=== PATIENT | male | born 1955 | race Caucasian/White ===

== ENCOUNTER 2018-07-09 02:16 | Outpatient (CLI) | payer BC, SELFPAY ==
[2018-07-09 10:33] LABS: Anion Gap 8.9 mmol/L (3-11); BUN 18 mg/dL (7-18); CO2 28.1 mmol/L (21.0-32.0); CREATININE 0.96 mg/dL (0.70-1.30); Calcium 8.9 mg/dL (8.5-10.1); Chloride 105 mmol/L (98-107); Cholesterol 264 mg/dL (50-200); Glucose 89 mg/dL (70-100); HDL Cholesterol 73 mg/dL (40-60); LDL CHOLESTEROL 179 mg/dL (<100); Potassium 4.2 mmol/L (3.5-5.1); Sodium 142 mmol/L (136-145); Triglyceride 60 mg/dL (30-150)
[2018-07-09 21:16] LABS: CRP, High Sensitivity <0.10 mg/L
[2018-07-12 10:01] LABS: PSA, Screening 6.8 ng/ml (0-4.5)
[2018-07-12 10:30] LABS: Vitamin D 25 Total 73.7 ng/ml (30-100)
== END 2018-07-09 02:36 ==
PROVIDERS: PCP Family Medicine; Visit Provider Family Medicine
DX: Z00.00 Encounter for general adult medical examination without abnormal findings (principal); Z13.220 Encounter for screening for lipoid disorders; Z13.228 Encounter for screening for other metabolic disorders; Z13.21 Encounter for screening for nutritional disorder; Z12.5 Encounter for screening for malignant neoplasm of prostate
CPT/HCPCS: 36415; 80048; 80061; 82306; 83721; 84153; 86141

== ENCOUNTER 2021-07-12 03:44 | Outpatient (CLI) | payer OTHER, SELFPAY ==
[2021-07-12 09:25] LABS: ALT 22 U/L (16-63); AST 14 U/L (15-37); Alkaline Phosphatase 93 U/L (46-116); Anion Gap 8.4 mmol/L (3-11); BUN 18 mg/dL (7-18); Bilirubin, Total 0.4 mg/dL (0.2-1.0); CO2 30.6 mmol/L (21.0-32.0); CREATININE 0.9 mg/dL (0.70-1.30); Calcium 8.7 mg/dL (8.5-10.1); Calculated LDL 194 mg/dL (<100); Chloride 104 mmol/L (98-107); Cholesterol 281 mg/dL (<200); Glucose 88 mg/dL (74-106); HDL Cholesterol 76 mg/dL (40-60); Potassium 3.9 mmol/L (3.5-5.1); Sodium 143 mmol/L (136-145); Triglyceride 57 mg/dL (<150)
[2021-07-12 18:26] LABS: PSA, Screening 8.2 ng/mL (0.0-4.5)
== END 2021-07-12 03:45 | disposition home or self-care (01) ==
LOC: LBO 03:44
PROVIDERS: PCP Family Medicine; Visit Provider Family Medicine
DX: Z13.220 Encounter for screening for lipoid disorders (principal); Z00.00 Encounter for general adult medical examination without abnormal findings; Z12.5 Encounter for screening for malignant neoplasm of prostate
CPT/HCPCS: 36415; 80053; 80061; 84153

== ENCOUNTER 2021-10-24 16:52 | Outpatient (REF) | payer OTHER, SELFPAY ==
[2021-10-24 18:49] LABS: Bilirubin Negative (Negative); Blood Negative (Negative); Clarity Clear (Clear); Glucose Negative (Negative); Ketones Negative (Negative); Leukocyte Esterase Negative (Negative); Nitrite Negative (Negative); Urobilinogen 0.2 EU/dL (Up TO 0.2)
== END 2021-10-24 16:53 | disposition home or self-care (01) ==
LOC: LBN 16:52
PROVIDERS: PCP Family Medicine; Visit Provider Family Medicine
DX: R31.9 Hematuria, unspecified (principal)
CPT/HCPCS: 81003

== ENCOUNTER 2022-07-16 03:22 | Outpatient (CLI) | payer OTHER, SELFPAY ==
[2022-07-16 12:33] LABS: Calculated LDL 184 mg/dL (<100); Cholesterol 265 mg/dL (<200); HDL Cholesterol 72 mg/dL (40-60); Triglyceride 46 mg/dL (<150)
[2022-07-29 11:12] LABS: CRP, High Sensitivity <0.34 mg/L
[2022-07-29 11:18] LABS: PSA, Screening 9.6 ng/mL (<or=4.5)
== END 2022-07-16 03:23 | disposition home or self-care (01) ==
LOC: LOS 03:22
PROVIDERS: PCP Family Medicine; Visit Provider Family Medicine
DX: Z00.00 Encounter for general adult medical examination without abnormal findings (principal); E78.2 Mixed hyperlipidemia; R97.20 Elevated prostate specific antigen [PSA]; Z12.5 Encounter for screening for malignant neoplasm of prostate
CPT/HCPCS: 36415; 80061; 84153; 86141

== ENCOUNTER 2022-11-11 14:12 | Outpatient (REF) | payer OTHER, SELFPAY ==
[2022-11-12 19:39] LABS: PSA, Screening 7.6 ng/mL (<=4.5)
== END 2022-11-11 14:13 | disposition home or self-care (01) ==
LOC: LBN 14:12
PROVIDERS: PCP Family Medicine; Visit Provider Nurse Practitioner Gerontology
DX: R97.20 Elevated prostate specific antigen [PSA] (principal); Z12.5 Encounter for screening for malignant neoplasm of prostate
CPT/HCPCS: 84153

== ENCOUNTER 2023-05-04 01:48 | Outpatient (CLI) | payer OTHER, SELFPAY ==
[2023-05-04 10:10] LABS: Anion Gap 6.1 mmol/L (3-11); BUN 19 mg/dL (7-18); CO2 28.9 mmol/L (21.0-32.0); CREATININE 0.9 mg/dL (0.70-1.30); Calcium 8.6 mg/dL (8.5-10.1); Calculated LDL 166 mg/dL (<100); Chloride 106 mmol/L (98-107); Cholesterol 259 mg/dL (<200); Estimated GFR 93.61 (mL/min/1.73m2); Glucose 103 mg/dL (74-106); HDL Cholesterol 75 mg/dL (40-60); Potassium 3.8 mmol/L (3.5-5.1); Sodium 141 mmol/L (136-145); Triglyceride 91 mg/dL (<150)
[2023-05-04 18:12] LABS: PSA, Screening 6.8 ng/mL (<=4.5)
== END 2023-05-04 01:49 | disposition home or self-care (01) ==
LOC: LBO 01:48
PROVIDERS: PCP Family Medicine; Visit Provider Nurse Practitioner Gerontology
DX: R97.20 Elevated prostate specific antigen [PSA]; Z00.00 Encounter for general adult medical examination without abnormal findings
CPT/HCPCS: 36415; 80048; 80061; 84153

== ENCOUNTER 2025-01-10 07:19 | Outpatient (CLI) | payer OTHER, SELFPAY ==
[2025-01-10 08:30] LABS: Anion Gap 6.3 mmol/L (3-11); BUN 19 mg/dL (7-18); CO2 29.7 mmol/L (21.0-32.0); CREATININE 1.1 mg/dL (0.70-1.30); Calculated LDL 227 mg/dL (<100); Chloride 104 mmol/L (98-107); Cholesterol 310 mg/dL (<200); Estimated GFR 72.67 (mL/min/1.73m2); Glucose 104 mg/dL (74-106); HDL Cholesterol 71 mg/dL (>or=40); Potassium 4.1 mmol/L (3.5-5.1); Sodium 140 mmol/L (136-145); Triglyceride 64 mg/dL (<150)
[2025-01-10 19:19] LABS: PSA, Diagnostic 9.4 ng/mL (<=4.5)
[2025-01-11 11:23] LABS: Hepatitis C Ab w Rflx HCV PCR Negative (Negative)
== END 2025-01-10 07:20 | disposition home or self-care (01) ==
PROVIDERS: PCP Family Medicine; Visit Provider Family Medicine
DX: R97.20 Elevated prostate specific antigen [PSA] (principal); Z13.6 Encounter for screening for cardiovascular disorders; E78.2 Mixed hyperlipidemia; Z13.1 Encounter for screening for diabetes mellitus; Z11.59 Encounter for screening for other viral diseases
CPT/HCPCS: 36415; 80048; 80061; 86803; 84153